=== PATIENT | female | born 2000 | race Caucasian/White ===

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

== ENCOUNTER 2020-10-30 12:17 | Inpatient (IN) ==
[2020-10-30 13:12] LABS: ABS Basophils 0.1 10^3/ul (0-0.2); ABS Eosinophils 0.1 10^3/ul (0-0.6); ABS Lymphocytes 1.6 10^3/ul (1.0-4.8); ABS Monocytes 1.1 10^3/ul (0-0.8); ABS Neutrophils 9.2 10^3/ul (1.5-7.7); Eosinophil % 0.7 %; Hematocrit 42 % (35-47); Hemoglobin 14.5 g/dL (12.0-16.0); Lymphocyte % 13.5 %; Mean Corpuscular HGB Conc 34 g/dL (31-36); Mean Corpuscular Hemoglobin 31 pg (27-31); Mean Corpuscular Volume 90 fL (80-97); Mean Platelet Volume 7.6 fL (7.4-10.4); Platelet Count 360 10^3/uL (150-450); Red Blood Count 4.71 10^6 /uL (3.70-4.87); Red Cell Distribution Width 13 % (10-15); White Blood Count 12.1 10^3/uL (3.5-10.8)
[2020-10-30 13:28] LABS: ALT 10 U/L (7-52); AST 21 U/L (13-39); Albumin/Globulin Ratio 1.9 (1-3); Alkaline Phosphatase 63 U/L (35-149); Anion Gap 11 mmol/L (2-11); Blood Urea Nitrogen 14 mg/dL (6-24); CO2 Carbon Dioxide 20 mmol/L (22-32); Chloride 105 mmol/L (101-111); EGFR African American 102.9 (>60); Globulin 2.7 g/dL (2-4); Glucose 76 mg/dL (70-100); Potassium 3.8 mmol/L (3.5-5.0); Sodium 136 mmol/L (135-145); Total Protein 7.7 g/dL (6.4-8.9)
[2020-10-30 13:35] LABS: HCG Pregnancy < 0.60 mIU/mL
[2020-10-30 13:57] LABS: Acetaminophen < 15 mcg/mL; Alcohol, S < 13 mg/dL (<10); Salicylate < 2.50 mg/dL (<30)
[2020-10-30 14:10] LABS: Urine Appearance Cloudy; Urine Bilirubin Negative (Negative); Urine Blood Negative (Negative); Urine Color Yellow; Urine Glucose Negative (Negative); Urine Ketones Trace (Negative); Urine Nitrite Negative (Negative); Urine Protein 1+(30 mg/dL) (Negative); Urine Specific Gravity 1.015 (1.002-1.030); Urine Urobilinogen Negative (Negative)
[2020-10-30 14:19] LABS: Urine Bacteria Absent (Absent); Urine Red Blood Cell 2+(6-10/hpf) (Absent); Urine Squamous Epithelial Cell Present (Absent); Urine White Blood Cell 2+(11-20/hpf) (Absent)
[2020-10-30 15:26] LABS: Urine Benzodiazepine Screen None Detected (None Detect); Urine Cannabinoids Screen Presumptive Positive (None Detect); Urine Opiates Screen None Detected (None Detect)
[2020-10-30] MEDS ORDERED: Lorazepam PYXIS KEY PRN (19:51)
[2020-10-30] MEDS ORDERED: diPHENhydraMINE IV 50 MG/ML 1 ml VIAL (BENADRYL) IM ONE (19:51)
[2020-10-30] MEDS ORDERED: LORazepam 2 mg VIAL 1 ml IM ONE (19:51)
[2020-10-30] MEDS ORDERED: LORazepam 2 mg VIAL 1 ml ONE (19:52)
[2020-10-30] MEDS ORDERED: Haloperidol 5 mg/ml SDV IV/IM 5 MG/ML AMP IM ONE (19:52)
[2020-10-30] MEDS ORDERED: Nicotine GUM 2MG FRUIT FLAVOR PO PRN (23:00)
[2020-10-30] MEDS ORDERED: Al Hydrox/Mg Hydrox/Simet LIQ 30 ML UDC PO PRN (23:54)
[2020-10-31] MEDS: Vitamin THERAPEUTIC TAB PO SCH (08:30)
[2020-11-01] MEDS: Vitamin THERAPEUTIC TAB PO SCH (08:37)
[2020-11-01] MEDS: chlorproMAZINE TAB 50 MG PO PRN (18:27)
[2020-11-02] MEDS: Vitamin THERAPEUTIC TAB PO SCH (08:25)
[2020-11-03] MEDS: Vitamin THERAPEUTIC TAB PO SCH (07:37)
[2020-11-03] MEDS: chlorproMAZINE TAB 50 MG PO PRN (10:29)
[2020-11-03] MEDS: Lithium Carbonate ER 450mg TAB PO SCH (22:13)
[2020-11-04] MEDS: Lithium Carbonate ER 450mg TAB PO SCH ×2 (07:42→21:12)
[2020-11-04] MEDS: Vitamin THERAPEUTIC TAB PO SCH (07:43)
[2020-11-04 08:10] LABS: HDL Cholesterol 34.5 mg/dL
[2020-11-05] MEDS: Lithium Carbonate ER 450mg TAB PO SCH (07:23)
[2020-11-05] MEDS: Vitamin THERAPEUTIC TAB PO SCH (07:23)
[2020-11-05 08:18] VITALS: BP 92/57
== END 2020-11-05 11:25 | disposition home or self-care (01) | DRG 753 ==
LOC: ED 12:17 → BSU 19:00
PROVIDERS: ADMIT Psychiatry & Neurology Addiction Psychiatry; ATTEND Psychiatry & Neurology Psychiatry

== ENCOUNTER 2021-10-23 14:32 | Inpatient (IN) ==
[2021-10-23] MEDS ORDERED: Buffered Lidocaine 1% SYRIN 1 ml INTRADERM ONE ×2 (15:09→15:36)
[2021-10-23] MEDS ORDERED: Ondansetron 4 mg VIAL 2 MG/ML 2 ml VIAL IV PRN (15:36)
[2021-10-23] MEDS ORDERED: Lactated Ringers 1000 ml BAG 1,000 ML IV ONE (15:36)
[2021-10-23 15:53] LABS: Urine Benzodiazepine Screen None Detected (None Detect); Urine Cannabinoids Screen Presumptive Positive (None Detect); Urine Opiates Screen None Detected (None Detect)
[2021-10-23] MEDS ORDERED: Lactated Ringers 1000 ml BAG 1,000 ML IV SCH (16:00)
[2021-10-23] MEDS ORDERED: Nalbuphine 10 MG/ML 1 ML VIAL IV ONE ×3 (16:47→21:32)
[2021-10-23] MEDS ORDERED: Promethazine INJ(RESTRICTED) 25 MG/ML 1 ml VIAL IV ONE ×3 (16:47→21:32)
[2021-10-23 22:37] LABS: ABS Basophils 0.1 10^3/ul (0-0.2); ABS Lymphocytes 2.1 10^3/ul (1.0-4.8); ABS Neutrophils 9.5 10^3/ul (1.5-7.7); Eosinophil % 0.2 %; Hematocrit 34 % (35-47); Hemoglobin 11.4 g/dL (12.0-16.0); Lymphocyte % 16.3 %; Mean Corpuscular HGB Conc 33 g/dL (31-36); Mean Corpuscular Hemoglobin 28 pg (27-31); Mean Corpuscular Volume 83 fL (80-97); Mean Platelet Volume 8.6 fL (7.4-10.4); Platelet Count 338 10^3/uL (150-450); Red Cell Distribution Width 15 % (10-15); White Blood Count 12.7 10^3/uL (3.5-10.8)
[2021-10-23 22:47] LABS: Urine Appearance Clear; Urine Color Yellow; Urine Urobilinogen 0.2 (Negative) (Negative)
[2021-10-23 22:48] LABS: Urine Bilirubin 1+ (Small) (Negative); Urine Blood Negative (Negative); Urine Glucose Negative (Negative); Urine Ketones 4+ (>=160mg/dL) (Negative); Urine Nitrite Negative (Negative); Urine Protein Negative (Negative)
[2021-10-23 23:11] LABS: Albumin 3.6 g/dL (3.2-5.2); Albumin/Globulin Ratio 1.4 (1-3); Globulin 2.6 g/dL (2-4); Potassium 3.7 mmol/L (3.5-5.0); Total Bilirubin 0.6 mg/dL (0.2-1.0); Total Protein 6.2 g/dL (6.4-8.9); Uric Acid 7.2 mg/dL (2.3-6.6); eGFR CKD-EPI 108.1 (>60)
[2021-10-24] MEDS ORDERED: Promethazine INJ(RESTRICTED) 25 MG/ML 1 ml VIAL IV ONE (01:57)
[2021-10-24] MEDS ORDERED: Nalbuphine 10 MG/ML 1 ML VIAL IV ONE (01:57)
[2021-10-24] MEDS ORDERED: OBEPIDURAL (200 ML) 200 ML EPIDURAL ONE (04:47)
[2021-10-24] MEDS ORDERED: Lidocaine 1% w EPI 1:200,000 SDV 30 ML VIAL ONE (04:48)
[2021-10-24] MEDS ORDERED: Lactated Ringers 1000 ml BAG 500 ML IV PRN (05:19)
[2021-10-24] MEDS ORDERED: Sodium Citrate/Citric Acid LIQ 15 ML UDC PO PRN (05:19)
[2021-10-24] MEDS ORDERED: Phenylephrine 40 mcg/mL 10mL (400mcg) SYRINGE IV PUSH PRN ×2 (05:19)
[2021-10-24] MEDS ORDERED: Lactated Ringers 1000 ml BAG 1,000 ML IV ONE (05:19)
[2021-10-24] MEDS ORDERED: Lactated Ringers 1000 ml BAG 1,000 ML IV SCH ×3 (06:00→12:00)
[2021-10-24 06:07] LABS: ABS Basophils 0.1 10^3/ul (0-0.2); ABS Lymphocytes 1.5 10^3/ul (1.0-4.8); ABS Neutrophils 12.6 10^3/ul (1.5-7.7); Eosinophil % 0.1 %; Hematocrit 33 % (35-47); Mean Corpuscular HGB Conc 34 g/dL (31-36); Mean Corpuscular Hemoglobin 28 pg (27-31); Mean Corpuscular Volume 84 fL (80-97); Mean Platelet Volume 8.6 fL (7.4-10.4); Platelet Count 334 10^3/uL (150-450); Red Cell Distribution Width 15 % (10-15); White Blood Count 15.2 10^3/uL (3.5-10.8)
[2021-10-24 06:33] LABS: Albumin 3.4 g/dL (3.2-5.2); Albumin/Globulin Ratio 1.4 (1-3); Calcium 8.9 mg/dL (8.6-10.3); Globulin 2.5 g/dL (2-4); Total Bilirubin 0.7 mg/dL (0.2-1.0); Total Protein 5.9 g/dL (6.4-8.9); eGFR CKD-EPI 109.8 (>60)
[2021-10-24] MEDS ORDERED: Oxytocin in LR 20 UNITS/1,000 ML BAG IVPB SCH (09:00)
[2021-10-24] MEDS ORDERED: Witch Hazel PAD JAR TOPICAL PRN (11:49)
[2021-10-24] MEDS ORDERED: Dibucaine 1% OINT 28.35 GM TUBE PR PRN (11:49)
[2021-10-24] MEDS ORDERED: Oxytocin in LR 20,000 MILLI.UNIT/1,000 ML BAG IV SCH (12:00)
[2021-10-24] MEDS ORDERED: Lidocaine 1% MPF 5 ML VIAL ONE (18:30)
[2021-10-24] MEDS ORDERED: Calcium Carb (TUMS) 500 mg CHEW TAB PO PRN (22:30)
[2021-10-25 06:24] LABS: Hematocrit 27 % (35-47); Hemoglobin 9.6 g/dL (12.0-16.0); Mean Corpuscular HGB Conc 35 g/dL (31-36); Mean Corpuscular Hemoglobin 30 pg (27-31); Mean Corpuscular Volume 85 fL (80-97); Mean Platelet Volume 8.4 fL (7.4-10.4); Platelet Count 285 10^3/uL (150-450); Red Cell Distribution Width 16 % (10-15); White Blood Count 14.8 10^3/uL (3.5-10.8)
[2021-10-25 06:43] LABS: ABS Basophils 0.1 10^3/ul (0-0.2); ABS Eosinophils 0.1 10^3/ul (0-0.6); ABS Lymphocytes 3.1 10^3/ul (1.0-4.8); ABS Monocytes 1.6 10^3/ul (0-0.8); ABS Neutrophils 9.9 10^3/ul (1.5-7.7); Eosinophil % 0.8 %
[2021-10-25] MEDS: OBEPIDURAL (200 ML) 200 ML EPIDURAL SCH ×2 (07:56→07:59)
[2021-10-25 16:09] VITALS: BP 114/72
== END 2021-10-25 15:20 | disposition home or self-care (01) | DRG 560 ==
LOC: MCHOBOUT 14:32 → MCHOB 15:16
PROVIDERS: ADMIT Midwife; ATTEND Midwife